=== PATIENT | female | born 1985 | race American Indian/Alaskan Native ===

== ENCOUNTER 2019-11-25 13:16 | Emergency (ER) | payer SELFPAY ==
[2019-11-25 13:25] VITALS: BP 159/95
[2019-11-25] MEDS ORDERED: LIDOCAINE VISCOUS 2% 15 ML ORAL LIQD ONE (14:13)
[2019-11-25] MEDS ORDERED: MAGNESIUM HYDROXIDE (MOM) ORAL LIQD UDC ONE (14:13)
--- NOTE | 2019-11-25 14:16 | Emergency Department Report ---
Chief Complaint: Chest Pain Stated Complaint: CHEST PAIN - HPI History of Present Illness: 34-year-old -[place] female presents to the emergency room for midsternal epigastric burning worse after eating [place] food, hot wings. Patient states that Pepto-Bismol and Rae-Charlo has helped some. Patient denies any cardiac history currently takes no medications on a daily basis and has no known drug allergies. - Exam Vital Signs: Vital Signs 11/25/19 11/25/19 13:21 14:06 Temperature 99 F Pulse Rate 122 H 98 H Respiratory 20 Rate Blood Pressure 159/95 O2 Sat by Pulse 98 Oximetry Physical Exam: Gen: alert oriented NAD Cardic: regular rate and rhythm no murmurs appreciated Resp: Clear to auscultation bilateral no wheezing no rales or rhonchi. Abdomen: Soft nontender nondistended normal bowel sounds. MSE screening note: Focused history and physical exam performed. Due to findings the following was ordered: 34-year-old -[place] female presents to the emergency room for midsternal epigastric burning worse after eating [place] food, hot wings. Patient states that Pepto-Bismol and Rae-Charlo has helped some. Patient denies any cardiac history currently takes no medications on a daily basis and has no known drug allergies. ED Disposition for MSE Clinical Impression: GERD (gastroesophageal reflux disease) Disposition: Z- MED SCREENING EXAM-LEFT Is pt being admited?: No Does the pt Need Aspirin: No Condition: Stable Instructions: Gastroesophageal Reflux in Children (ED) Additional Instructions: Recommend taking etso-oey-xjprksj omeprazole 20 mg daily. You can take intermittently Maalox which may soothe your stomach as well. Recommend to avoid spicy, garlicly tomato base foods. Do not lay down after eating for 2 hours. Recommend elevating head of bed to a 30 to 45 degree angle. I recommend following up with a primary care provider as well as a casino change attendant. Referrals: YNES HAMM MD [Staff Physician] - 3-5 Days
[2019-11-25] MEDS: ALUM-MAG HYDROXIDE-SIMETHICONE 200-200-20MG/5ML ORAL LIQD 30 ML PO ONE ×2 (14:18→16:25)
[2019-11-25] MEDS ORDERED: LIDOCAINE VISCOUS 2% 15 ML ORAL LIQD PO ONE (16:03)
[2019-11-25] MEDS ORDERED: MAGNESIUM HYDROXIDE (MOM) ORAL LIQD UDC PO ONE (16:23)
== END 2019-11-25 14:22 | disposition left against medical advice (07) ==
LOC: ED 13:16
DX: K21.9 Gastro-esophageal reflux disease without esophagitis (principal)
CPT/HCPCS: 93005; 99282